=== PATIENT | female | born 1965 | race Caucasian/White ===

== ENCOUNTER 2020-05-03 11:04 | Outpatient (CLI) | payer OTHER, SELFPAY ==
--- NOTE | ~2020-05-03 | MM_ITS ---
EXAMINATION: MM screening iván BI w janice HISTORY: Screening TECHNIQUE: Craniocaudal and mediolateral oblique 3-D tomosynthesis images were obtained and synthetic 2-D images were generated. CAD analysis was submitted and interpreted. COMPARISON: Comparison to multiple prior studies sequentially, with oldest reviewed study dated 04/01. BREAST PARENCHYMAL COMPOSITION: There are scattered areas of fibroglandular density. FINDINGS: There is no evidence of suspicious mass, calcification, or architectural distortion to sugg est malignancy in either breast. There has been no suspicious interval change. IMPRESSION: 1. No mammographic evidence of malignancy. 2. Recommend routine screening mammography in one year. BI-RADS Category 1: Negative Reviewed, dictated and finalized at location A. GRAPHIC TYPEWRITER OPERATOR
== END 2020-05-03 11:05 | disposition home or self-care (01) ==
LOC: ANHIMG 11:08
PROVIDERS: PCP Internal Medicine; Visit Provider Obstetrics & Gynecology Gynecology
DX: Z12.31 Encounter for screening mammogram for malignant neoplasm of breast (principal)
CPT/HCPCS: 77063; 77067

== ENCOUNTER 2021-05-12 10:00 | Outpatient (CLI) | payer OTHER, SELFPAY ==
--- NOTE | ~2021-05-12 | MM_ITS ---
EXAMINATION: MM screening iván BI w janice HISTORY: Screening mammogram TECHNIQUE: Craniocaudal and mediolateral oblique 3-D tomosynthesis images were obtained and synthetic 2-D images were generated. CAD analysis was submitted and interpreted. COMPARISON: 05/03/2020, 04/29/2019, 04/26/2018 bilateral screening mammogram examinations BREAST PARENCHYMAL COMPOSITION: There are scattered areas of fibroglandular density. FINDINGS: There is no evidence of suspicious mass, calcification, or architectural distortion to sugg est malignancy in either breast. There has been no suspicious interval change. IMPRESSION: 1. No mammographic evidence of malignancy. 2. Recommend routine screening mammography in one year. BI-RADS Category 1: Negative Reviewed, dictated and finalized at location A. ISTIC TECHNICIAN
--- NOTE | ~2021-05-12 | DEXA_ITS ---
Bone Density Report Name: Sherrill Villasenor Age: 55 Sex: Female Ethnicity: White Date of : 1965 Indication: postmenopausal; parental hip fracture; height loss; Referring Provider: LALY BENNETT Study: Bone densitometry was performed. Exam Date: May 12, 2021 Accession number: [id number] Bone Density: Region BMD T-score Z-score Classification AP Spine (L1-L4) 1.068 0.2 1.4 Normal Femoral Neck (Left) 0.834 -0.1 1.0 Normal Total Hip (Left) 0.927 -0.1 0.7 Normal Total Hip Bilateral Avg 0.925 -0.2 0.7 Normal Femoral Neck (Right) 0.802 -0.4 0.7 Normal Total Hip (Right) 0.922 -0.2 0.6 Normal World Health Organization criteria for BMD impression classify patients as: Normal (T-score at or above -1.0), Osteopenia (T-score between -1.0 and -2.5), or Osteoporosis (T-score at or below -2.5). 10-year Fracture Risk: FRAX not reported because: All T-scores for Spine Total, Hip Total, Femoral Neck at or above -1.0 Previous Exams: Region Exam Age BMD T-score BMD Change BMD Change Date g/cm2 vs Baseline vs Previous AP Spine(L1-L4) 05/12/2021 55 1.068 0.2 0.002(0.2%) 0.002(0.2%) 04/26/2018 52 1.066 0.2 Total Hip(Left) 05/12/2021 55 0.927 -0.1 -0.093(-9.1%)* -0.093(-9.1%)* 04/26/2018 52 1.019 0.6 Total Hip(Right) 05/12/2021 55 0.922 -0.2 -0.066(-6.7%)* -0.066(-6.7%)* 04/26/2018 52 0.988 0.4 *Denotes significance at 95% confidence level, LSC for AP Spine = 0.022 g/cm2, LSC for Total Hip = 0.027 g/cm2 Clinical Information Provided by Patient: Parent has had a hip fracture Has used the following medications: Calcium Patient maximum height was 65 Menopause Age: 51 Onset of menses at age 11 Number of children 2 Impression: The patient has normal bone mass. The patient has risk factors, including: parental hip fracture. The BMD for the Total Hip(Left) decreased, changing by -9.1% since the last DXA exam. The BMD for the Total Hip(Right) decreased, changing by -6.7% since the last DXA exam. Discussion: BONE DENSITY IS ABOVE THE MINIMUM DESIRABLE LEVEL AT ALL SKELETAL SITES TESTED. This patient?s bone mineral density is above the minimum desirable level (T-score -1.0 or better) at all sites measured. The patient should follow a healthful lifestyle (good nutrition with adequate calcium and vitamin D, and appropriate weight-bearing exercise). Follow-Up: Consider repeating this study in 3 to 4 years to reassess this patient's statu
== END 2021-05-12 10:01 | disposition home or self-care (01) ==
LOC: ANHIMG 10:02
PROVIDERS: PCP Internal Medicine; Visit Provider Obstetrics & Gynecology Gynecology
DX: Z12.31 Encounter for screening mammogram for malignant neoplasm of breast (principal); Z78.0 Asymptomatic menopausal state
CPT/HCPCS: 77063; 77067; 77080

== ENCOUNTER 2022-08-24 08:59 | Outpatient (CLI) | payer OTHER, SELFPAY ==
--- NOTE | ~2022-08-24 | MM_ITS ---
EXAMINATION: MM screening iván BI w janice HISTORY: Screening mammogram TECHNIQUE: Craniocaudal and mediolateral oblique 3-D tomosynthesis images were obtained and synthetic 2-D images were generated. CAD analysis was submitted and interpreted. COMPARISON: 05/12/2021, 05/03/2020, 04/29/2019 bilateral screening mammogram examinations BREAST PARENCHYMAL COMPOSITION: There are scattered areas of fibroglandular density. FINDINGS: There is no evidence of suspicious mass, calcification, or architectural distortion to sugg est malignancy in either breast. There has been no suspicious interval change. IMPRESSION: 1. No mammographic evidence of malignancy. 2. Recommend routine screening mammography in one year. BI-RADS Category 1: Negative Reviewed, dictated and finalized at location A. D WASTE DIVISION SUPERVISOR
== END 2022-08-24 09:00 | disposition home or self-care (01) ==
PROVIDERS: PCP Internal Medicine; Visit Provider Obstetrics & Gynecology Gynecology
DX: Z12.31 Encounter for screening mammogram for malignant neoplasm of breast (principal)
CPT/HCPCS: 77063; 77067

== ENCOUNTER 2024-07-09 09:48 | Outpatient (CLI) | payer OTHER, SELFPAY ==
--- NOTE | ~2024-07-09 | DEXA_ITS ---
Bone Density Report Name: KHOA PEREA Age: 58 Sex: Female Ethnicity: White Date of : 1965 Indication: postmenopausal; screening for osteoporosis; parental hip fracture; Referring Provider: LALY BENNETT Study: Bone densitometry was performed. Exam Date: July 09, 2024 Accession number: [id number] Bone Density: Region BMD T-score Z-score Classification AP Spine(L1, L2, L3) 1.092 0.7 2.1 Normal Femoral Neck (Left) 0.798 -0.5 0.9 Normal Total Hip (Left) 0.902 -0.3 0.7 Normal Femoral Neck (Right) 0.781 -0.6 0.7 Normal Total Hip (Right) 0.912 -0.2 0.7 Normal Total Hip Mean 0.907 -0.3 0.7 Normal World Health Organization criteria for BMD impression classify patients as: Normal (T-score at or above -1.0), Osteopenia (T-score between -1.0 and -2.5), or Osteoporosis (T-score at or below -2.5). 10-year Fracture Risk: FRAX not reported because: All T-scores for Spine Total, Hip Total, Femoral Neck at or above -1.0 Previous Exams: Region Exam Age BMD T-score BMD Change BMD Change Date g/cm2 vs Baseline vs Previous AP Spine (L1-L3) 07/09/2024 58 1.092 0.7 -0.016 (-1.4%) -0.019 (-1.7%) 05/12/2021 55 1.110 0.8 0.003 (0.3%) 0.003 (0.3%) 04/26/2018 52 1.107 0.8 Total Hip(Left) 07/09/2024 58 0.902 -0.3 -0.118 (-11.5% -0.025 (-2.7%) 05/12/2021 55 0.927 -0.1 -0.093 (-9.1%) -0.093 (-9.1%) 04/26/2018 52 1.019 0.6 Total Hip(Right) 07/09/2024 58 0.912 -0.2 -0.077 (-7.7%) -0.011 (-1.1%) 05/12/2021 55 0.922 -0.2 -0.066 (-6.7%) -0.066 (-6.7%) 04/26/2018 52 0.988 0.4 *Denotes significance at 95% confidence level, LSC for AP Spine = 0.022 g/cm2, LSC for Total Hip = 0.027 g/cm2 # Denotes dissimilar scan types or analysis methods Clinical Information Provided by Patient: Parent has had a hip fracture Has used the following medications: Vitamin D, Calcium Patient maximum height was 65 Menopause Age: 51 Does not regularly consume dairy products Onset of menses at age 11 Number of children 2 Impression: The patient has normal bone mass. The patient has risk factors, including: parental hip fracture. No significant bone loss was observed. Discussion: BONE DENSITY IS ABOVE THE MINIMUM DESIRABLE LEVEL AT ALL SKELETAL SITES TESTED. This patient?s bone mineral density is above the minimum desirable level (T-score -1.0 or better) at all sites measured. The patient should follow a healthful lifestyle (good nutrition with adequate calcium and vitamin D, and appropriate weight-bearing exercise). Follow-Up: Consider repeating this study in 5 years or sooner if there is some new clinical indication. Reported by: JIM on 07/09/2024 10:33:00 AM. Reviewed, dictated and finalized at location Anatoliy COFFEY
--- NOTE | ~2024-07-09 | MM_ITS ---
EXAMINATION: MM screening iván BI w janice HISTORY: Screening TECHNIQUE: Craniocaudal and mediolateral oblique 3-D tomosynthesis images were obtained and synthetic 2-D images were generated. CAD analysis was submitted and interpreted. COMPARISON: Comparison to multiple prior studies sequentially, with oldest reviewed study dated 04/02. BREAST PARENCHYMAL COMPOSITION: Not dense: There are scattered areas of fibroglandular density. FINDINGS: There are developing asymmetries in the subareolar location of the left breast. The right b reast is stable without evidence for malignancy. IMPRESSION: 1. Developing left breast asymmetries. 2. Additional mammographic views and possible breast ultrasound are recommended. BI-RADS Category 0: Incomplete: Needs additional imaging evaluation. Reviewed, dictated and finalized at location B. IVES TECHNICIAN IMPRESSION: 1. Developing left breast asymmetries. 2. Additional mammographic views and possible breast ultrasound are recommended . BI-RADS Category 0: Incomplete: Needs additional imaging evaluation.
== END 2024-07-09 09:49 | disposition home or self-care (01) ==
LOC: ANHIMG 09:54
PROVIDERS: PCP Family Medicine; Visit Provider Obstetrics & Gynecology Gynecology
DX: Z12.31 Encounter for screening mammogram for malignant neoplasm of breast (principal); R92.8 Other abnormal and inconclusive findings on diagnostic imaging of breast; Z78.0 Asymptomatic menopausal state
CPT/HCPCS: 77063; 77067; 77080

== ENCOUNTER 2024-07-25 10:54 | Outpatient (CLI) | payer OTHER, SELFPAY ==
--- NOTE | ~2024-07-25 | MM_ITS ---
EXAMINATION: MM diagnostic iván LT w janice HISTORY: Left breast asymmetry TECHNIQUE: Additional 3-D tomosynthesis images of the left breast were performed and synthetic 2-D im ages were generated. CAD analysis was submitted and interpreted. COMPARISON: 07/09/2024, 08/24/2022 BREAST PARENCHYMAL COMPOSITION:Not Dense. There are scattered areas of fibroglandular density. FINDINGS: Left subareolar asymmetry effaces with spot compression. No persistent mass lesion or disto rtion. No suspicious microcalcification. IMPRESSION: No mammographic evidence for malignancy. BI-RADS Category 1: Negative Reviewed, dictated and finalized at location . Y REPAIRER
--- OUTSIDE RECORDS SUMMARY | 2024-07-25 11:26 | XMS_ITS | Encounter Summary ---
Author Organization [facility] Address [address] [place] [address]. [place], [place] [id number] [place] [address] Care Team Providers Care Model Maker Apprentice Name Role Phone Jono Cruz MD Primary Care Provider U Stan Prado MD Primary Care Pr ovider aKte Masters MD Primary Care Provider Encounter Details Date Type Department Care Team (Late st Contact Info) Description 07/11/2021 Augment Message Enc [facility] Medical Group Family & Internal Medicine [address] [address] Wilfrido [facility] Provider TB Social History Tobacco Use Types Packs/Day Years Used Date Smoking Tobacco: Never Smokeless Tobacco: Never Alcohol Use Standard Drinks/Week Comments Never 0 (1 standard drink = 0.6 oz pur e alcohol) PHQ-2 Answer Date Recorded PHQ-2 Score - If the patient scores above 3, please move on to questions 3-9 0 05/17/2021 Comments No Sex and Gender Information Value Date Recorded Sex Assigned at Not on file Legal Sex Female 5:52 PM CDT Gender Identity Not on file Sexual Orientation Not on file COVID-19 Exposure Response Date Recorded In the last month, have you been in contact with someone who was confirmed or suspected to have Coronavirus / COVID-19? 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 [address] [place] [address] PCP - General FAMILY PRACTICE 02/09/23 documented as of this encounter
--- OUTSIDE RECORDS SUMMARY | 2024-07-25 11:26 | XMS_ITS | Encounter Summary ---
Author Organization [facility] Address [address] [place] [address]. [place], [place] [id number] [place] [address] Care Team Providers Care Physical Design Engineer Name Role Phone Jono Cruz MD Primary Care Provider U Stan Prado MD Primary Care Pr ovider Kate Masters MD Primary Care Provider Encounter Details Date Type Department Care Team (Late st Contact Info) Description 05/18/2021 [employer] Message Enc [facility] Medical Group Family & Internal Medicine [address] [address] [facility] Provider Testing Social History Tobacco Use Types Packs/Day Years [...] have Coronavirus / COVID-19? 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 [address] [place] [address] PCP - General FAMILY PRACTICE 02/09/23 documented as of this encounter
--- OUTSIDE RECORDS SUMMARY | 2024-07-25 11:26 | XMS_ITS | Encounter Summary ---
Author Organization [facility] Address [address] [place] [address]. [place], [place] [id number] [place] [address] Care Team Providers Care Curing Press Operator Name Role Phone Jono Cruz MD Primary Care Provider U Stan Prado MD Primary Care Pr ovid Kate Masters MD Primary Care Provider Encounter Details Date Type Department Care Team (Late st Contact Info) Description 06/09/2022 PA Semi Message Enc [facility] Medical Group Family & Internal Medicine [address] [address] Wilfrido, [facility] Provider Due for routine follow up appt Social History Tobacco Use Types Packs/Day Years Used Date Smoking Tobacco: Never Smokeless Tobacco: Never Alcohol Use Standard Drinks/Week Comments Never 0 (1 standard drink = 0.6 oz pur e alcohol) PHQ-2 Answer Date Recorded PHQ-2 Score - If the patient scores above 3, please move on to questions 3-9 0 03/29/2022 Comments No Sex and Gender Information Value Date Recorded Sex Assigned at Not on file Legal Sex Female 5:52 PM CDT Gender Identity Not on file Sexual Orientation Not on file documented as of this encounter Plan of Treatment Not on file documented as of this encounter Visit Diagnoses Not on filedocumented in this encounter Additional Health Concerns Infection Onset Date Last Indicated Resolved Time MRSA 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 [address] [place] [address] PCP - General FAMILY PRACTICE 02/09/23 documented as of this encounter
--- OUTSIDE RECORDS SUMMARY | 2024-07-25 11:26 | XMS_ITS | Encounter Summary ---
Author Organization [facility] Address [address] [place] [address]. [place], [place] [address] [place] [address] Care Team Providers Care Ornamental Metal Worker Apprentice Name Role Phone Jono Cruz MD Primary Care Provider U Stan Prado MD Primary Care Pr ovider Kate Masters MD Primary Care Provider [phone] Encounter Details Date Type Department Care Team (Late st Contact Info) Description 07/08/2021 [employer] Message Enc [facility] Medical Group Family & Internal Medicine [address] [address] Wilfrido [facility] Provider TB Social History Tobacco Use Types [...] COVID-19? 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 [address] [place] [address] PCP - General FAMILY PRACTICE 02/09/23 documented as of this encounter
--- OUTSIDE RECORDS SUMMARY | 2024-07-25 11:26 | XMS_ITS | Encounter Summary ---
Author Organization [facility] Address [address] [place] [address]. [place], [place] [address] [place] [address] Care Team Providers Care Auricular Acupuncturist Name Role Phone Jono Cruz MD Primary Care Provider U Stan Prado MD Primary Care Pr ovider Kate Masters MD Primary Care Provider [phone] Encounter Details Date Type Department Care Team (Late st Contact Info) Description 06/23/2021 mEgo Message Enc [facility] Medical Group Family & Internal Medicine [address] [address] [facility], [facility] Provider titre results Social History Tobacco Use Types Packs/Day Years [...] have Coronavirus / COVID-19? No / Unsure 06/17/2021 8:58 AM JACKAROO documented as of this encounter Plan of Treatment Not on file documented as of this encounter Visit Diagnoses Not on filedocumented in this encounter Additional Health Concerns Infection Onset Date Last Indicated Resolved Time MRSA 02/08/2017 02/08/2017 Assessment Noted Time PHQ-9 Depression Total Score: 0 05/17/20 10:46 AM JACKAROO documented as of this encounter Care Teams Auricular Acupuncturist Relationship Specialty Start Date End Date Jono Cruz MD PCP - General INTERNAL MEDICINE 05/17/21 10/05/22 Stan Madison MD PCP - General FAMILY PRACTICE 10/06/22 02/08/23 [place] [address] [facility]. [address] [place] [address] PCP - General FAMILY PRACTICE 02/09/23 documented as of this encounter
--- OUTSIDE RECORDS SUMMARY | 2024-07-25 11:26 | XMS_ITS | Encounter Summary ---
Author Organization [facility] Address [address] [place] [address]. [place], [place] [id number] [place] [address] Care Team Providers Care Waiter/Waitress Informal Name Role Phone Jono Cruz MD Primary Care Provider U Stan Prado MD Primary Care Pr ovid Kate Masters MD Primary Care Provider [phone] Encounter Details Date Type Department Care Team (Late st Contact Info) Description 07/14/2021 [employer] Message Enc [facility] Medical Group Family & Internal Medicine [address] [address] [facility] for school Social History Tobacco Use Types Packs/Day Years [...] have Coronavirus / COVID-19? No / Unsure 07/15/2021 3:20 PM SHAPER SETTER documented as of this encounter Progress Notes * Meredith Vargas LPN - 07/14/2021 3:29 PM CST PT CALLED BACK READ MESSAGE V/U ER SETTER documented in this encounter Plan of Treatment Not on file documented as of this encounter Visit Diagnoses Not on filedocumented in this encounter Additional Health Concerns Infection Onset Date Last Indicated Resolved Time MRSA 02/08/2017 02/08/2017 Assessment Noted Time PHQ-9 Depression Total Score: 0 05/17/20 10:46 AM SHAPER SETTER documented as of this encounter Care Teams Waiter/Waitress Informal Relationship Specialty Start Date End Date Jono Cruz MD PCP - General INTERNAL MEDICINE 05/17/21 10/05/22 Stan Madison MD PCP - General FAMILY PRACTICE 10/06/22 02/08/23 [place] [address] [facility]. [address] [place] [address] PCP - General FAMILY PRACTICE 02/09/23 documented as of this encounter
--- OUTSIDE RECORDS SUMMARY | 2024-07-25 11:26 | XMS_ITS | Encounter Summary ---
Author Organization [facility] Address [address] [place] [address]. [place], [place] [address] [place] [address] Care Team Providers Care Slackline Operator Name Role Phone Jono Cruz MD Primary Care Provider U Stan Prado MD Primary Care Pr ovider Kate Masters MD Primary Care Provider [phone] Encounter Details Date Type Department Care Team (Late st Contact Info) Description 06/13/2021 [employer] Message Enc [facility] Medical Group Family & Internal Medicine [address] [address] Wilfr[facility] Provider School lab Social History Tobacco Use Types Packs/Day Years [...] have Coronavirus / COVID-19? 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 [address] [place] [address] PCP - General FAMILY PRACTICE 02/09/23 documented as of this encounter
--- OUTSIDE RECORDS SUMMARY | 2024-07-25 11:26 | XMS_ITS | Clinical Summary ---
Author Organization [facility] Address [address] [place] [address]. [place], [place] [address] [place] [address] Care Team Providers Care Linux Administrator Name Role Phone Kate Quinones MD Primary Care Provider [phone] Allergies No known active allergies Medications Estradiol-Noret hindrone Acet 0.5-0.1 MG Tab Take 1 tablet by mouth daily. 1 Active naloxone (NARCAN) 4 MG/0.1ML nasal spray 1 spray by Nasal route as needed for Opioid reversal. may repeat every 2 to 3 minutes in alternating nostrils until medical assistance becomes available 1 each 4 08/01/19 25 Active HYDROcodone-bob taminophen (NORCO) 5-325 MG tabletIndicatio ns:Acute Pain < 7 Day Supply Take 1 tablet by mouth every 4 (four) hours as needed for Pain. Indications: Acute Pain < 7 Day Supply 30 tablet 4 Active Active Problems Problem Noted Date Diagnosed Date Elevated LDL cholesterol level 06/22/2023 Anxiety 11/22/2021 Stress and adjustment reaction 09/08/2021 Resolved Problems Problem Noted Date Diagnosed Date Resolved Date Primary insomnia 09/08/2021 06/22/2023 Physical examination of employee 05/17/2021 05/23/2021 Right carotid bruit 05/17/2021 06/22/20 23 Need for diphtheria-tetanus- pertussis (Tdap) vaccine 05/17/2021 05/23/2021 Screening-pulmonary TB 05/17/202105/23 Encounters Date Type Department Care Team Description 07/09/2024 Scan [facility] Scanned, [facility] Bone Density Report (SCAN) from Last 3 Months Immunizations Name Administration Dates Next Due MMR (MMRII) 08/01/2021,06/30/2021 PFIZER COVID-19 (ORIGINAL FO RMULATION, PURPLE CAP) mRNA, LNP-S, PF, 30 MCG/0.3 ML DOSE 07/09/2020,06/18/2020 Tdap (Adacel) 05/17/2021 Family History Medical History Relation Comments Cancer Father Heart Attack Father Heart Mother Heart Disease Mother CHF Relation Status Comments Father Mother Alive Social History Tobacco Use Types Packs/Day Years Used Date Smoking Tobacco: Never Smokeless Tobacco: Never Tobacco Cessation:Counseling Given: Not Answered Alcohol Use Standard Drinks/Week Comments Never 0 (1 standard drink = 0.6 oz pur e alcohol) PHQ-2 Answer Date Recorded Patient Health Questionnaire-2 Score 0 06/22/2023 Comments No Sex and Gender Information Value Date Recorded Sex Assigned at Not on file Legal Sex Female 5:52 PM CDT Gender Identity Not on file Sexual Orientation Not on file Last Filed Vital Signs Vital Sign Reading Time Taken Comments Blood Pressure 162/94 08/01/2023 6:20 PM ZONING ENGINEER Pulse 68 08/01/2023 6:20 PM ZONING ENGINEER Temperature 36.1 ??C (96.9 ??F) 08/01/2023 5:12 PM CS T Respiratory Rate 16 08/01/2023 6:20 PM ZONING ENGINEER Oxygen Saturation 96% 08/01/2023 6:20 PM ZONING ENGINEER Inhaled Oxygen Concentration - - Weight 81.6 kg (180 lb) 08/01/2023 11:59 AM ZONING ENGINEER Height 165.1 cm (5' 5 ) 08/01/2023 11:59 AM ZONING ENGINEER Body Mass Index 29.95 08/01/2023 11:59 AM ZONING ENGINEER Plan of Treatment Health Maintenance Due Date Last Done Comments Cervical Cancer Screening Pap Smear (Age 30 to 64) Every 3 Years 1963 Colorectal Cancer Screening Colonoscopy (10 Years) 1963 Annual Physical 10/23/1966 Hepatitis C 10/23/1981 Cervical Cancer Screening Pap with HPV Testing (Age 30 to 64) Every 5 Years 10/23/1993 Cervical Cancer Screening with HPV 10/23/1993 Zoster Vaccines (1 of 2) 10/23/2013 COVID-19 Vaccine (5 - 2024-25 season) 2024 08/26/2022, 04/06/2021, 07/09/2020, Additional history exists Influenza Adult (#1) 2024 PHQ-2 (Physician [place]) 06/22/2024 06/22/2023 Mammogram Screening 08/24/2024 08/24/2022, 05/03/2020, 05/03/2020 DTaP, Tdap and Td Vaccines (2 - Td or Tdap) 05/17/2031 05/17/2021 RSV Immunization or 60+ Years (1 - 1-dose 75+ series) 10/23/2038 Meningococcal B Vaccine Aged Out No l onger eligible based on patient's age to complete this topic Meningococcal Vaccine Aged Out No pooja juliette eligible based on patient's age to complete this topic Pneumococcal Vaccine: Pediatrics (0 to 5 Years) and At-Risk Patients (6 to 64 Years) Aged Out No longer eligible based on patient's age to complete this topic RSV Immunizations Under 20 Months Aged Out No longer eligible based on patient's age to complete this topic Medical Devices Implanted Type Area Training Representative Device Identifier Shelf Expiration Date Model / Serial / Lot 3 Holle Proximal Lateral Humerus Plate Implanted:Qty: 1 on 08/01/2023 by Jt Jovel DO at [facility] Left: Humerus [employer] [id number] / / 3.5 X 28 Mm Non Locking Screw Implanted:Qty: 1 on 08/01/2023 by Jt Jovel DO at [facility] Left: Humerus [employer] [id number] / / 3.5 X 30 Mm Non Locking Screw Implanted:Qty: 1 on 08/01/2023 by Jt Jovel DO at [facility] Left: Humerus [employer] [id number] / / 4.0 X 30 Mm Locking Screw Implanted:Qty: 1 on 08/01/2023 by Jt Jovel DO at [facility] Left: Humerus [employer] [id number] / / 4.0 X 34 Mm Locking Screw Implanted:Qty: 1 on 08/01/2023 by Jt Jovel DO at [facility] Left: Humerus [employer] [id number] / / 4.0 X 38 Mm Implanted:Qty: 1 on 08/01/2023 by Jt Jovel DO at [facility] Left: Humerus [employer] [id number] / / 4.0 X 40 Mm Locking Screw Implanted:Qty: 3 on 08/01/2023 by Jt Jovel DO at [facility] Left: Humerus [employer] [id number] / / 4.0 X 42 Mm Locking Screw Implanted:Qty: 1 on 08/01/2023 by Jt Jovel DO at [facility] Left: Humerus [employer] [id number] / / 4.0 X 44 Implanted:Qty: 1 on 08/01/2023 by Jt Jovel DO at [facility] Left: Humerus [employer] [id number] / / Explanted Type Area Training Representative Device Identifier Shelf Expiration Date Model / Serial / Lot 4.0 X 46 Mm Locking Screw Explanted:Qty: 1 on 08/01/2023 at [facility] Left: Humerus [employer] [id number] / / 3.5 X 36 Mm Non Locking Screw Explanted:Qty: 1 on 08/01/2023 at [facility] Left: Humerus [employer] [id number] / / 4.0 X 40 Mm Locking Screw Explanted:Qty: 1 on 08/01/2023 at [facility] Left: Humerus [employer] [id number] / / 4.0 X 42 Mm Locking Screw Explanted:Qty: 1 on 08/01/2023 at [facility] Left: Humerus [employer] [id number] / / Procedures Procedure Name Priority Date/Time Associated Diagnosis Comments BONE DENSITY GENERIC (SCAN ORDER) 07/09/2024 MAMMOGRAM GENERIC (SCAN ORDER) 08/24/2022 from Last 3 Months or Most Recently Relevant to Health Maintenance Results * BONE DENSITY GENERIC (SCAN ORDER) (07/09/2024) Anatomical Region Laterality Modality Other 07/09/2024 [facility] Scanned SCANNING Final Resu lt * MAMMOGRAM GENERIC (08/24/2022) Anatomical Region Laterality Modality Other 08/24/2022 [facility] Scanned SCANNING Final Resu lt from Last 3 Months or Most Recently Relevant to Health Maintenance Additional Health Concerns Infection Onset Date Last Indicated 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 [place] [address] [phone] PCP - General FAMILY PRACTICE 02/09/23
--- OUTSIDE RECORDS SUMMARY | 2024-07-25 11:26 | XMS_ITS | Encounter Summary ---
Author Organization [facility] Address [address] [place] [address]. [place], [place] [id number] [place] [address] Care Team Providers Care Harmonica Maker Name Role Phone Kate Quinones MD Primary Care Provider [phone] Encounter Details Date Type Department Care Team (Late st Contact Info) Description 02/19/2024 Therapy Plan [facility] Physical Therapy [address] [place] [address] [place], [place] [address] Social History Tobacco Use Types Packs/Day Years [...] Total Score: 0 05/17/20 21 10:46 AM RETAIL CENTER RECEPTIONIST documented as of this encounter Care Teams Harmonica Maker Relationship Specialty [place] [id number] [address] [place] [id number] PCP - General FAMILY PRACTICE 02/09/23 documented as of this encounter
--- OUTSIDE RECORDS SUMMARY | 2024-07-25 11:26 | XMS_ITS | Encounter Summary ---
Author Organization [facility] Address [address] [place] [address]. [place], [place] [address] [place] [address] Care Team Providers Care Plow Mechanic Name Role Phone Jono Cruz MD Primary Care Provider U Stan Prado MD Primary Care Pr ovid Kate Masters MD Primary Care Provider [phone] Encounter Details Date Type Department Care Team (Late st Contact Info) Description 2021 [employer] Message Enc [facility] Medical [facility] Family & Internal Medicine [address] [phone] [facility] Provider Disability Form Social History Tobacco Use Types Packs/Day Years [...] Total Score: 0 05/17/20 21 10:46 AM CHEMIST HELPER documented as of this encounter Care Teams Plow Mechanic Relationship Specialty Start Date End Date Jono Cruz MD PCP - General INTERNAL MEDICINE 05/17/21 10/05/22 Stan Madison MD PCP - General FAMILY PRACTICE 10/06/22 02/08/23 [place] [id number] [facility]. [address] [place] [address] [phone] PCP - General FAMILY PRACTICE 02/09/23 documented as of this encounter
--- OUTSIDE RECORDS SUMMARY | 2024-07-25 11:26 | XMS_ITS | Encounter Summary ---
Author Organization [facility] Address [address] [place] [address]. [place] [address] [place] [address] Care Team Providers Care Flap Curer Name Role Phone Kate Quinones MD Primary Care Provider [phone] Encounter Details Date Type Department Care Team (Late st Contact Info) Description 08/17/[address] [facility] [address] [place] [address] Suyapa Barrera, CONSTRUCTION CONTROLLER [address] [place] [address] Social History Tobacco Use Types Packs/Day Years [...] documented as of this encounter Visit Diagnoses Diagnosis Closed 2-part displaced fracture of surgical neck of left humerus with routine healing, subsequent encounter- Primary documented in this encounter Additional Health Concerns Infection Onset Date Last Indicated Resolved Time MRSA 02/08/2017 02/08/2017 Assessment Noted Time PHQ-9 Depression Total Score: 0 05/17/20 21 10:46 AM MODEL BUILDER DISPLAY documented as of this encounter Care Teams Flap Curer Relationship Specialty [place] [address] [address] [place] [phone] PCP - General FAMILY PRACTICE 02/09/23 documented as of this encounter
== END 2024-07-25 10:55 | disposition home or self-care (01) ==
LOC: ANHIMG 10:54
PROVIDERS: PCP Family Medicine; Visit Provider Obstetrics & Gynecology Gynecology
DX: Z12.31 Encounter for screening mammogram for malignant neoplasm of breast (principal); Z98.82 Breast implant status
CPT/HCPCS: 77061; 77065; G0279